=== PATIENT | male | born 1945 | race Caucasian/White ===

== ENCOUNTER 2019-07-21 11:45 | Outpatient (CLI) | payer MEDICARE, OTHER ==
--- NOTE | 2019-07-21 12:59 | MRI ---
LUMBAR SPINE MRI WITHOUT CONTRAST: DATE: 07/21/2019. COMPARISON: 06/15/2016. HISTORY: Back pain with bilateral leg weakness, primarily left-sided. TECHNIQUE: Multiplanar multisequence MR imaging of lumbar spine obtained without contrast. FINDINGS: The sagittal STIR imaging demonstrates no focal area of osseous marrow edema. There is no significant anterolisthesis or retrolisthesis noted within the lumbar spine. There is lum bar spine levoscoliosis. There is minimal anterolisthesis of T12 on L1 measuring in the 3 mm range. Conus medullaris terminates at T12-L1. T12-L1: Disc space narrowing with disc desiccation and degenerative endplate change. Bilateral facet hypertrophy. No significant central canal stenosis. Mild right neural foraminal stenosis. L1-2: There is disc space narrowing and disc desiccation with anterior and posterior osteophyte forma tion. Bilateral facet hypertrophy is noted. There is no significant central canal stenosis. Mild right neural foraminal stenosis. L2-3: Bilateral facet hypertrophy. Disc space narrowing, disc desiccation and anterior osteophyte for mation, and posterior osteophyte. Moderate left neural foraminal stenosis. No significant central canal stenosis. L3-4: Bilateral facet hypertrophy. There is disc space narrowing and disc desiccation with mild disc bulge. There is moderate neural foraminal stenosis on the right. L4-5: Bilateral facet hypertrophy. Disc space narrowing and disc desiccation. Mild right and moderate /severe left neural foraminal stenosis. L5-S1: There is disc space narrowing and disc desiccation. There is vertebral body osteophyte encroac hment on the neural foramen on the left. This is exacerbated by facet hypertrophy with associated moderate left neural foraminal stenosis. No significant right neural foraminal stenosis. The imaged retroperitoneal structures demonstrate no acute findings. There is evidence of bilateral laminectomy from T12 through L5. IMPRESSION: Postoperative and degenerative changes within the lumbar spine as detailed above. Transcribed Date/Time: 07/21/2019 1:24 PM
== END 2019-07-21 11:46 | disposition home or self-care (01) ==
LOC: TBSIIMAG 11:45
PROVIDERS: ATTEND Anesthesiology Pain Medicine
DX: M96.1 Postlaminectomy syndrome, not elsewhere classified (principal); M48.062 Spinal stenosis, lumbar region with neurogenic claudication; M47.816 Spondylosis without myelopathy or radiculopathy, lumbar region; M48.07 Spinal stenosis, lumbosacral region
CPT/HCPCS: 72148

== ENCOUNTER 2020-04-30 12:08 | Outpatient (CLI) | payer MEDICARE, OTHER ==
--- NOTE | 2020-04-30 12:41 | RAD ---
RADIOGRAPH LUMBAR SPINE 4 VIEWS: DATE: 04/30/2020 HISTORY: 74-year-old male with low back pain and lumbar radiculopathy due to lumbar spinal stenosis COMPARISON: 07/03/2015 TECHNIQUE: All weightbearing images. AP view. Lateral views in flexion, extension, and neutral. FINDINGS: 5 lumbar-type vertebrae. Left convex rotoscoliosis centered at L1 of 27 degrees (measured from superi or endplate of T11 through inferior endplate of L3. Severe disc space narrowing at every level. Vertebral body heights are maintained. Grade 1 chronic left lateral subluxation of L2 on L3 has sligh tly worsened. No anterolisthesis at any level. No instability between flexion and extension. Vertebral body heights are maintained. Facet DJD of varying degrees, including high-grade, especially on the left at L4-5. Loss of lordosis. New midline laminectomy defects from T12-L1 through L5-S1. IMPRESSION: 1) severe lumbar spondylosis with multilevel severe degenerative disc disease, and multilevel high-gr margareth facet osteoarthrosis. 2) levoscoliosis centered at thoracolumbar junction. 3) interval status post laminectomies throughout the entire lumbar spine. 4) no spondylolisthesis, and no instability
--- NOTE | 2020-04-30 21:37 | MRI ---
EXAM: LUMBAR SPINE MRI WITHOUT IV CONTRAST: 04/30/20 HISTORY: Lumbar spinal stenosis. Low back pain, difficulty walking. COMPARISON: 07/21/19. FINDINGS: no evidence for acute abnormal marrow edema. Moderate levoscoliosis. Minimal anterolisthesis of T12 o n L1. Generalized disc desiccation changes with disc osteophytosis. T12-L1 disc: Minimal bilateral foraminal stenosis. L1-2 disc: Diffuse disc osteophytosis with some mild lateral recess stenosis and evidence for bilater al foraminal stenosis. L2-3 disc: Diffuse disc bulging with moderate bilateral recess stenosis and moderate to severe bilate ral foraminal stenosis. L3-4 disc: Bilateral recess and bilateral foraminal stenosis without significant central canal stenos is. L4-5 disc: Diffuse disc osteophytosis with moderate to severe bilateral foraminal stenosis. Mild late ral recess stenosis. L5-S1 disc: Diffuse disc bulging and disc osteophytosis much worse on the left side with left latera l recess stenosis and severe left foraminal stenosis. Little overall change from prior study. Extensive laminectomy throughout the lumbar spine. IMPRESSION: Multilevel variable severity mostly lateral recess and foraminal stenosis as above. Little overall ch ayaz when compared to prior study. POS: RRE
== END 2020-04-30 12:09 | disposition home or self-care (01) ==
LOC: BICMRI 12:08
PROVIDERS: ATTEND Anesthesiology Pain Medicine
DX: M48.062 Spinal stenosis, lumbar region with neurogenic claudication (principal); M47.816 Spondylosis without myelopathy or radiculopathy, lumbar region; M51.36 Other intervertebral disc degeneration, lumbar region; M41.85 Other forms of scoliosis, thoracolumbar region; M48.061 Spinal stenosis, lumbar region without neurogenic claudication; Z98.890 Other specified postprocedural states
CPT/HCPCS: 72120; 72148

== ENCOUNTER 2020-12-17 06:03 | Day surgery (SDC) | payer MEDICARE, OTHER ==
[2020-12-16 09:26] VITALS: BMI 27.3
[2020-12-17] MEDS ORDERED: Thrombin 5000 UNITS/5 ML VIAL ONE (06:53)
[2020-12-17] MEDS ORDERED: Fentanyl 250 MCG/5 ML VIAL ONE (07:11)
[2020-12-17] MEDS ORDERED: HYDROmorphone 2 MG/ML VIAL ONE (07:11)
[2020-12-17] MEDS ORDERED: Ketamine 50 MG/ML (10ML VIAL) ONE (07:11)
[2020-12-17] MEDS ORDERED: HYDROcodone/Acetaminophen 7.5/325 mg Tablet PO PRN (09:22)
[2020-12-17] MEDS ORDERED: Acetaminophen/Codeine 30-300mg Tablet PO PRN (09:22)
[2020-12-17] MEDS ORDERED: Ondansetron PF 4 MG/2 ML Vial IVP PRN (09:22)
[2020-12-17] MEDS ORDERED: Morphine 2 MG/ML VIAL SLOW IVP PRN (09:22)
[2020-12-17] MEDS ORDERED: Acetaminophen 325 MG TAB PO PRN (09:22)
[2020-12-17] MEDS ORDERED: tiZANidine HCl 4 MG TAB PO PRN (09:22)
[2020-12-17] MEDS ORDERED: Rocuronium Bromide 10 MG/ML (10ML VIAL) ONE (09:25)
[2020-12-17] MEDS ORDERED: Lidocaine 1% PF 5 ML VIAL ONE (09:25)
[2020-12-17] MEDS ORDERED: PHENYLEPHRINE-NS 100 MCG/ML 10 ML SYRINGE ONE (09:25)
[2020-12-17] MEDS ORDERED: Ketorolac Tromethamine 30 MG/ML VIAL ONE (09:25)
[2020-12-17] MEDS ORDERED: PROPOFOL 200 MG/20 ML VIAL ONE (09:25)
[2020-12-17] MEDS ORDERED: Ondansetron PF 4 MG/2 ML Vial ONE (09:25)
[2020-12-17] MEDS ORDERED: ePHEDrine 50 MG/ML VIAL ONE (09:25)
[2020-12-17] MEDS ORDERED: Sodium Chloride 0.9% 1,000 ML IV SCH (09:30)
[2020-12-17] MEDS ORDERED: Fentanyl 100 MCG/2 ML VIAL ONE ×3 (09:47→11:03)
[2020-12-17] MEDS ORDERED: Albuterol 200 PUFF (6.7GM INHALER) INH PRN (10:03)
[2020-12-17] MEDS ORDERED: HYDROcodone/Acetaminophen 5/325 mg Tablet ONE (13:04)
[2020-12-17] MEDS ORDERED: Morphine ER 30 MG TAB PO SCH (14:00)
[2020-12-17] MEDS ORDERED: CEFAZOLIN 2 GM in Premix Bag 1 BAG IVPB SCH (15:00)
[2020-12-17] MEDS ORDERED: Tamsulosin HCl 0.4 MG CAP PO SCH (21:00)
[2020-12-17] MEDS ORDERED: Finasteride 5 MG TAB PO SCH (21:00)
[2020-12-17] MEDS ORDERED: Calcium Carbonate 600 MG + Vit D TAB PO SCH (21:00)
[2020-12-17] MEDS ORDERED: Spironolactone 25 MG TAB PO SCH (21:00)
[2020-12-17] MEDS ORDERED: Nortriptyline HCl 25 MG CAP PO SCH (21:00)
[2020-12-17] MEDS ORDERED: Latanoprost 0.005% Ophth Soln 2.5 ml Bottle EA EYE SCH (21:00)
[2020-12-17] MEDS ORDERED: Lisinopril 20 MG TAB PO SCH (21:00)
[2020-12-17] MEDS ORDERED: Melatonin 3 MG TAB PO SCH (21:00)
[2020-12-18] MEDS ORDERED: Levothyroxine Sodium 75 MCG TAB PO SCH (06:00)
--- NOTE | 2020-12-18 08:14 | OP ---
DATE OF PROCEDURE: 12/17/2020 ENGAGEMENT DIRECTOR: Elizabeth Toth PA-C LOCATION: OR 12. Type 1 wound. PREPROCEDURE DIAGNOSIS: Recurrent bilateral L5 and left S1 radiculopathy. POSTPROCEDURE DIAGNOSIS: Recurrent bilateral L5 and left S1 radiculopathy. PROCEDURES PERFORMED: 1. Bilateral L4-L5 revision hemilaminotomies, foraminotomies (modifier 50 should be added as this was bilateral surgery). 2. Left L5-S1 revision hemilaminotomy, foraminotomy. DESCRIPTION OF PROCEDURE: After informed consent was obtained from the patient, the patient was brought to the OR. Proper patient, pause, and identification were carried out. He was placed under excellent general endotracheal anesthesia and positioned prone on the OR table. All appropriate points were padded. We identified the L4-L5 and L5-S1 dorsal spines and lamina. A linear blanca was made over this area. This region was sterilely cleansed, prepared, and draped. Proper patient, pause, and identification were carried out. The prior wound was then opened with combination of sharp, monopolar, and blunt dissection and localization film confirmed area of interest following exposure of the bilateral L4-L5 and left L5-S1 segments. This region was sterilely cleansed, prepared, and draped. We then performed bilateral L4-L5 revision hemilaminotomies and foraminotomies with decompression of the traversing left L5 and right L5 nerve roots. We then did a left L5-S1 revision hemilaminotomy, foraminotomy with decompression of left S1 nerve root. Copious irrigation occurred throughout as did maximizing hemostasis. The wound was closed in anatomic layers following sprinkling of vancomycin powder. The patient emerged from anesthesia. Job ID: [id number]
[2020-12-18] MEDS ORDERED: Bisoprolol Fumarate 5 MG TAB PO SCH (09:00)
[2020-12-18] MEDS ORDERED: Fluticasone Propionate Nasal Spray 16 gm Bottle NASAL SCH (09:00)
== END 2020-12-17 14:50 | disposition home or self-care (01) ==
LOC: SDC 06:03
PROVIDERS: ATTEND Surgery
PROC: 01NB0ZZ Release Lumbar Nerve, Open Approach (ICD-10-PCS; principal; 2020-12-17)
DX: M51.17 Intervertebral disc disorders with radiculopathy, lumbosacral region (principal); M48.062 Spinal stenosis, lumbar region with neurogenic claudication; I10 Essential (primary) hypertension; E03.9 Hypothyroidism, unspecified; G25.0 Essential tremor; F43.10 Post-traumatic stress disorder, unspecified; J45.909 Unspecified asthma, uncomplicated; Z79.899 Other long term (current) drug therapy; Z87.891 Personal history of nicotine dependence; Z88.1 Allergy status to other antibiotic agents; Z88.2 Allergy status to sulfonamides; Z88.5 Allergy status to narcotic agent
CPT/HCPCS: 76000; J0690; J1170; J1885; J2405; J2704; J3010; J3370; J3490

== ENCOUNTER 2021-05-05 12:47 | Outpatient (CLI) | payer MEDICARE, OTHER | END 2021-05-05 12:48 | disposition home or self-care (01) | LOC: TBSIIMAG 12:47 | PROVIDERS: ATTEND Surgery | DX: M47.26 Other spondylosis with radiculopathy, lumbar region (principal); Z98.890 Other specified postprocedural states | CPT/HCPCS: 72148 ==

== ENCOUNTER 2022-01-21 11:58 | Outpatient (CLI) | payer MEDICARE, OTHER | END 2022-01-21 11:59 | disposition home or self-care (01) | LOC: TBSIIMAG 11:58 | PROVIDERS: ATTEND Surgery | DX: M54.50 Low back pain, unspecified (principal); M47.816 Spondylosis without myelopathy or radiculopathy, lumbar region; S32.030A Wedge compression fracture of third lumbar vertebra, initial encounter for closed fracture; M47.817 Spondylosis without myelopathy or radiculopathy, lumbosacral region; M47.815 Spondylosis without myelopathy or radiculopathy, thoracolumbar region | CPT/HCPCS: 72148 ==

== ENCOUNTER 2022-06-22 13:25 | Outpatient (CLI) | payer MEDICARE, OTHER | END 2022-06-22 13:26 | disposition home or self-care (01) | LOC: SCSMRI 13:25 | PROVIDERS: ATTEND Anesthesiology Pain Medicine | DX: M48.05 Spinal stenosis, thoracolumbar region (principal); M47.814 Spondylosis without myelopathy or radiculopathy, thoracic region; M47.812 Spondylosis without myelopathy or radiculopathy, cervical region; M96.1 Postlaminectomy syndrome, not elsewhere classified; M54.2 Cervicalgia; M54.50 Low back pain, unspecified; M79.606 Pain in leg, unspecified | CPT/HCPCS: 72141; 72146; 72148 ==

== ENCOUNTER 2023-08-03 09:17 | Outpatient (CLI) | payer MEDICARE, OTHER | END 2023-08-03 09:18 | disposition home or self-care (01) | LOC: NM 09:17 | PROVIDERS: ATTEND Anesthesiology Pain Medicine | DX: S22.070A Wedge compression fracture of T9-T10 vertebra, initial encounter for closed fracture (principal); M47.816 Spondylosis without myelopathy or radiculopathy, lumbar region | CPT/HCPCS: 78306; A9503 ==